=== PATIENT | female | born 1975 | race Caucasian/White ===

== ENCOUNTER 2017-07-03 22:43 | Emergency (ER) | payer BC, OTHER ==
[2017-07-03 22:54] VITALS: BP 133/73; PULSE 104; TEMP 98.7; BMI 54.3
--- NOTE | 2017-07-03 23:45 | PDOC ---
History of Present Illness - General History Source: Patient Exam Limitations: No Limitations - History of Present Illness Initial Comments: 07/03/17 23:47 The patient is a 41-year-old female, with no significant past medical history, who presents to the ED with chest pain that began today. The pt describes the pain as intermittent and pressure-like in sensation. She does report experiencing shortness of breath when she exerts herself that resolves when she is at rest. Pt took 3 advils which helped to alleviate the pain. She reports going out with some friends tonight for drinks but she had to go home early because the pain returned. The patient reports fatigue. The patient denies any numbness or tingling. She denies any reflux. She denies any fever, chills, cough, nausea, vomiting, or diarrhea. She denies any urinary changes. <Sophie Oscar - Last Filed: 07/04/17 00:06> - General History Source: Patient <Jase Gastelum - Last Filed: 07/04/17 01:56> - General Chief Complaint: Chest Pain Stated Complaint: CHEST PAIN Time Seen by Provider: 07/03/17 23:17 Past History <Sophie Oscar - Last Filed: 07/04/17 00:06> - Psycho/Social/Smoking Cessation Hx Suicidal Ideation: No Smoking History: Never smoked Have you smoked in the past 12 months: No Information on smoking cessation initiated: No Hx Alcohol Use: No Drug/Substance Use Hx: No <Jase Gastelum - Last Filed: 07/04/17 01:56> - Past Medical History Allergies/Adverse Reactions: Allergies Allergy/AdvReac Type Severity Reaction Status Date / Time banana Allergy Swelling Verified 07/03/17 22:58 hazelnut Allergy Swelling Verified 07/03/17 22:58 strawberry Allergy Swelling Verified 07/03/17 22:58 sunflower seed Allergy Swelling Verified 07/03/17 22:58 walnut Allergy Swelling Verified 07/03/17 22:58 blueberry Allergy Swelling Uncoded 07/03/17 22:58 Review of Systems - Review of Systems Able to Perform ROS?: Yes Comments:: 07/03/17 23:48 CONSTITUTIONAL: Present: fatigue Absent: fever, chills, diaphoresis, generalized weakness, malaise, loss of appetite HEENT: Absent: rhinorrhea, nasal congestion, throat pain, throat swelling, difficulty swallowing, mouth swelling, ear pain, eye pain, visual Changes CARDIOVASCULAR: Present: chest pain Absent: syncope, palpitations, irregular heart rate, lightheadedness, peripheral edema RESPIRATORY: Present: dyspnea with exertion, shortness of breath Absent: cough, orthopnea, wheezing, stridor, hemoptysis GASTROINTESTINAL: Absent: abdominal pain, abdominal distension, nausea, vomiting, diarrhea, constipation, melena, hematochezia GENITOURINARY: Absent: dysuria, frequency, urgency, hesitancy, hematuria, flank pain, genital pain MUSCULOSKELETAL: Absent: myalgia, arthralgia, joint swelling SKIN: Absent: rash, itching, pallor HEMATOLOGIC/IMMUNOLOGIC: Absent: easy bleeding, easy bruising, lymphadenopathy, frequent infections ENDOCRINE: Absent: unexplained weight gain, unexplained weight loss, heat intolerance, cold intolerance NEUROLOGIC: Absent: headache, focal weakness or paresthesias, dizziness, unsteady gait, seizure, mental status changes, bladder or bowel incontinence PSYCHIATRIC: Absent: anxiety, depression, suicidal or homicidal ideation, hallucinations. <Sophie Oscar - Last Filed: 07/04/17 00:06> *Physical Exam - Vital Signs Last Vital Signs Temp Pulse Resp BP Pulse Ox 98.7 F 104 H 20 133/73 99 07/03/17 22:47 07/03/17 22:47 07/03/17 22:47 07/03/17 22:47 07/03/17 22:47 - Physical Exam Comments: 07/03/17 23:49 GENERAL: Well developed, well nourished. Awake and alert. No acute distress. Morbidly obese. HEENT: Normocephalic, atraumatic. PERRLA, EOMI. No conjunctival pallor. Sclera are non- icteric. Moist mucous membranes. Oropharynx is clear. NECK: Supple. Full ROM. No JVD. Carotid pulses 2+ and symmetric, without bruits. No thyromegaly. No lymphadenopathy. CARDIOVASCULAR: Regular rate and rhythm. No murmurs, rubs, or gallops. Distal pulses are 2+ and symmetric. PULMONARY: No evidence of respiratory distress. Lungs clear to auscultation bilaterally. No wheezing, rales or rhonchi. ABDOMINAL: Soft. Non-tender. Non-distended. No rebound or guarding. No organomegaly. Normoactive bowel sounds. MUSCULOSKELETAL Normal range of motion at all joints. No bony deformities or tenderness. No CVA tenderness. EXTREMITIES: No cyanosis. No clubbing. No edema. No calf tenderness. SKIN: Warm and dry. Normal capillary refill. No rashes. No jaundice. NEUROLOGICAL: Alert, awake, appropriate. Cranial nerves 2-12 intact. PSYCHIATRIC: Cooperative. Good eye contact. Appropriate mood and affect. <Sophie Oscar - Last Filed: 07/04/17 00:06> - Vital Signs Last Vital Signs Temp Pulse Resp BP Pulse Ox 98.7 F 104 H 20 133/73 99 07/03/17 22:47 07/03/17 22:47 07/03/17 22:47 07/03/17 22:47 07/03/17 22:47 <Jase Gastelum - Last Filed: 07/04/17 01:56> Heart Score/ECG Review - ECG Intrepretation Comment:: 07/04/17 00:07 EKG was reviewed by Dr. Gastelum at 20:37. Impression: Normal sinus rhythm. Nonspecif T wave abnormality. Prolonged QT. <Sophie Oscar - Last Filed: 07/04/17 00:06> ED Treatment Course - LABORATORY CBC & Chemistry Diagram: 07/03/17 23:50 07/03/17 23:50 <Sophie Oscar - Last Filed: 07/04/17 00:06> - LABORATORY CBC & Chemistry Diagram: 07/03/17 23:50 07/03/17 23:50 <Jase Gastelum - Last Filed: 07/04/17 01:56> Medical Decision Making - Medical Decision Making 07/04/17 01:56 Dr. Gastelum: The scribe's documentation has been prepared under my direction and personally reviewed by me in its entirery. I confirm that the note above accurately reflects all work, treatment, procedures, and medical decision making performed by me. <Jase Gastelum - Last Filed: 07/04/17 01:56> *DC/Admit/Observation/Transfer - Attestations Scribe Attestion: 07/03/17 23:50 Documentation prepared by Sophie Oscar, acting as medical appointment scheduler for Jase Gastelum MD. <Sophie Oscar - Last Filed: 07/04/17 00:06> - Discharge Dispostion Admit: No <Jase Gastelum - Last Filed: 07/04/17 01:56> Diagnosis at time of Disposition: Chest pain - Discharge Dispostion Disposition: HOME Condition at time of disposition: Stable - Referrals Referrals: STAFF,NOT ON [Primary Care Provider] - Yarely Augustine MD [Staff Physician] - Andrey Villanueva MD [Staff Physician] - - Patient Instructions Printed Discharge Instructions: DI for Chest Pain
[2017-07-03 23:57] LABS: BASOPHIL 0.7 % (0-2.0); EOSINOPHIL 0.3 % (0-4.5); MCH 30.3 pg (25.7-33.7); MEAN CELL VOLUME 89.2 fl (80-96); MEAN PLT VOLUME 9.4 fl (7.5-11.1); NEUTROPHILS 72.5 % (42.8-82.8); PLATELET COUNT 293 K/MM3 (134-434); RDW 13.5 % (11.6-15.6); WHITE BLOOD COUNT 11.2 K/mm3 (4.0-10.0)
[2017-07-04 00:10] LABS: INR 1.07 (0.82-1.09); PROTHROMBIN TIME (PATIENT) 11.8 SEC (9.98-11.88)
[2017-07-04 00:30] LABS: ALBUMIN 3.6 g/dl (3.4-5.0); CALCIUM 8.7 mg/dL (8.5-10.1); CO2 25 mmol/L (21-32); CREATININE 0.7 mg/dL (0.55-1.02); GLUCOSE,RANDOM 132 mg/dL (74-106); SGPT/ALT 20 U/L (12-78); TOT PROT 7.2 g/dl (6.4-8.2)
[2017-07-04 00:53] LABS: ALK PHOS 66 U/L (45-117); ANION GAP 11 (8-16); CPK 115 IU/L (26-192); TROPONIN I < 0.02 ng/ml (0.00-0.05)
[2017-07-04 00:55] LABS: BILIRUBIN,TOTAL < 0.1 mg/dL (0.2-1.0); SGOT/AST 16 U/L (15-37)
--- NOTE | 2017-07-04 16:15 | EKG ---
Test Reason : Blood Pressure : / mmHG Vent. Rate : 107 BPM Atrial Rate : 107 BPM P-R Int : 142 ms QRS Dur : 084 ms QT Int : 352 ms P-R-T Axes : 043 009 -07 degrees QTc Int : 469 ms SINUS TACHYCARDIA MINIMAL VOLTAGE CRITERIA FOR LVH, MAY BE NORMAL VARIANT NONSPECIFIC T WAVE ABNORMALITY ABNORMAL ECG NO PREVIOUS ECGS AVAILABLE Confirmed by MD PRETTY, SAMANTHA ([id number]) on 07/04/2017 4:14:57 PM Referred By: Confirmed By:SAMANTHA OLSEN MD
== END 2017-07-04 02:16 | disposition home or self-care (01) ==
LOC: JER 22:43
DX: R07.9 Chest pain, unspecified (principal)
CPT/HCPCS: 36415; 80053; 84484; 85025; 85610; 93005; 93010; 99281-25; 99285-25